=== PATIENT | male | born 1970 | race Caucasian/White ===

== ENCOUNTER 2016-11-30 23:10 | Emergency (ER) | payer OTHER ==
[~2016-11-30] VITALS: Ht 162.6 cm; Wt 76.0 kg
[2016-11-30 23:14] VITALS: Ht 162.6 cm; Wt 76.0 kg
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
--- NOTE | 2016-12-01 01:44 | RADRPT ---
PROCEDURE: XR Right Forearm. CLINICAL INDICATION: Trauma. Pain. TECHNIQUE: AP and lateral views of the right forearm were obtained. COMPARISON: No prior studies are available for comparison. FINDINGS: There is no fracture. Joint relationships are maintained. Bone mineralization is within normal ríos its. Soft tissues are unremarkable. IMPRESSION: No acute abnormality. RPTAT: [facility]VK .Dustin Ribeiro MD, MD Date Time Electronically viewed and signed by .Dustin Ribeiro MD, MD on 12/01/2016 01:43 .K/
--- NOTE | 2016-12-01 01:46 | RADRPT ---
PROCEDURE: XR Humerus. CLINICAL INDICATION: Trauma. Pain. TECHNIQUE: AP and lateral views of the left humerus were performed. COMPARISON: None. FINDINGS: No fracture is identified. Joint relationships are maintained. Bone mineralization is within willam l limits. Soft tissues are unremarkable. There is no posterior fat pad sign. IMPRESSION: No fracture or dislocation. RPTAT: [facility]VK .Dustin Ribeiro MD, Date Time Electronically viewed and signed by .Dustin Ribeiro MD, on 12/01/2016 01:45 .K/
[2016-12-01] MEDS ORDERED: IBUP-1542 PO (01:53)
[2016-12-01 02:19] VITALS: BP 133/70; PULSE 77; RESP 18; TEMP 98
== END 2016-12-01 02:20 | disposition home or self-care (01) ==
LOC: FTE 23:10
DX: S40.029A Contusion of unspecified upper arm, initial encounter (principal); W18.30XA Fall on same level, unspecified, initial encounter; Y92.9 Unspecified place or not applicable
CPT/HCPCS: 73060

== ENCOUNTER 2019-03-22 14:13 | Emergency (ER) | payer SELFPAY ==
[~2019-03-22] VITALS: Ht 160 cm; Wt 62.4 kg
[~2019-03-22 14:13] MED LIST: IBUP-1542 PO; IBUP800T48 PO
[2019-03-22 14:15] VITALS: BP 127/92; PULSE 69; RESP 16; Ht 160 cm; Wt 62.4 kg
== END 2019-03-22 16:30 | disposition left against medical advice (07) ==
LOC: FTE 14:13
DX: S69.91XA Unspecified injury of right wrist, hand and finger(s), initial encounter (principal); Y09 Assault by unspecified means
CPT/HCPCS: 71110